=== PATIENT | female | born 1980 | race Caucasian/White ===

== ENCOUNTER 2019-04-06 12:38 | Emergency (ER) | payer SELFPAY ==
[~2019-04-06] VITALS: Ht 180.3 cm; Wt 95.3 kg
--- NOTE | 2019-04-06 13:22 | ED EENT ---
History of Present Illness General Chief Complaint: Ear Problems Stated Complaint: HEADACHE;TROUBLE HEARING Nursing Triage Note: patient reji she has been experiencing left ear pain and left sided neck pain x 1 year that has become progressively worse. Source: patient Exam Limitations: no limitations History of Present Illness Date Seen by Provider: Apr 06, 2019 Time Seen by Provider: 13:06 Initial Comments The patient presents to ER by private conveyance with chief complaint of having some pressure and pain in the left side around her ear as well as decreased hearing on the left side. She does have allergies since she moved down here from [place]. She's not using any antiallergy medicines Flonase etc. She also is having a complaint of some acid reflux has been worse for the past year. She's tried Pepcid, Zantac Tums and other medicines with no relief. She has not seen her primary care doctor for this. Allergies and Home Medications Patient Home Medication List Home Medication List Reviewed: Yes Review of Systems Review of Systems Constitutional: No chills, No diaphoresis Eyes: Denies Blindness, Denies Blurred Vision Ears: Denies Dizziness; Pain; Denies Tinnitus, Denies Bloody Discharge, Denies Clear Discharge, Denies Purulent Discharge Nose: denies clots; congestion Mouth: denies clots, denies loose teeth Throat: denies pain, denies swelling Respiratory: No cough, No dyspnea on exertion Gastrointestinal: see HPI Past Qioxbtg-Eynqzb-Qparlo Hx Patient Social History Alcohol Use: Denies Use Recreational Drug Use: No Smoking Status: Never a Smoker Recent Foreign Travel: No Contact w/Someone Who Travel: No Recent Infectious Disease Expo: No Recent Hopitalizations: No Past Medical History Surgeries: Yes Tubal Ligation Respiratory: No Cardiac: No Neurological: No Genitourinary: No Gastrointestinal: No Musculoskeletal: No Endocrine: No HEENT: No Cancer: No Psychosocial: No Blood Disorders: No Physical Exam Vital Signs Vital Signs - First Documented 04/06/19 13:10 Temp 98.8 Pulse 65 Resp 14 B/P (MAP) 135/91 (106) Pulse Ox 98 O2 Delivery Room Air Height, Weight, BMI Height: 5'11.00" Weight: 210lbs. oz. 95.866185ob; BMI Method:Stated General Appearance: WD/WN, no apparent distress Eyes: bilateral eye normal inspection, bilateral eye PERRL, bilateral eye EOMI Ears: bilateral ear auricle normal, bilateral ear canal normal, bilateral ear TM dull, bilateral ear other (both TMs retracted with a left TM has white mucoid effusion) Nose: normal inspection; No active bleeding, No discharge Mouth/Throat: normal mouth inspection, pharynx normal Respiratory: no respiratory distress, no accessory muscle use Gastrointestinal: normal bowel sounds, non tender, soft Neurologic/Psychiatric: alert, oriented x 3 Progress/Results/Core Measures Results/Orders Vital Signs/I&O 04/06/19 13:10 Temp 98.8 Pulse 65 Resp 14 B/P (MAP) 135/91 (106) Pulse Ox 98 O2 Delivery Room Air Blood Pressure Mean: 106 Progress Progress Note : Time: 13:18 Progress Note Pantoprazole and Carafate for 2 weeks then follow-up with primary care if unimproved. We'll trial of antihistamine second generation and Flonase for 2 weeks and has not improving provide her with a prescription for prednisone to help with her otitis media effusion left Departure Impression Primary Impression: Chronic otitis media of left ear with effusion Additional Impression: GERD (gastroesophageal reflux disease) Qualified Codes: K21.0 - Gastro-esophageal reflux disease with esophagitis Disposition: HOME, SELF-CARE Condition: Stable Departure-Patient Inst. Decision time for Depature: 13:20 Referrals: NO,LOCAL PHYSICIAN (PCP) Primary Care Physician Patient Instructions: Serous Otitis Media (DC) Add. Discharge Instructions: To treat the allergies that are causing the blockage of your ear and eustachian tube I suggest you start taking an antihistamine such as loratadine or cetirizine daily. You should also flower buncher or picker a bottle of Flonase, Rhinocort or other nasal steroid and use 2 puffs each nostril once or twice a day for the next 2 weeks. If this does not solve your symptoms then add the short course of prednisone 2 tablets twice a day for 5 days. For your acid reflux symptoms try the pantoprazole one capsule daily and Carafate 1 tablet 30 minutes before meals and at bedtime for 2 weeks. If this does not improve your reflux symptoms then you need to follow-up with primary care for further evaluation and management. All discharge instructions reviewed with patient and/or family. Voiced understanding. Scripts Prednisone (Prednisone) 20 Mg Tab 40 MG PO BID for 5 Days, #20 TAB 0 Refills Prov: YAJAIRA BARROSO 04/06/19 Fluticasone Propionate (Flonase Allergy Relief) 9.9 Ml [place].susp 2 SPRAY NS DAILY for 14 Days, #1 EACH 0 Refills 2 SPRAYS PER NOSTRIL DAILY X 2 DAYS THEN 1 SPRAY DAILY Prov: YAJAIRA BARROSO 04/06/19 Pantoprazole Sodium (Pantoprazole Sodium) 40 Mg Tablet.dr 40 MG PO DAILY for 14 Days, #14 TAB 0 Refills Prov: YAJAIRA BARROSO 04/06/19 Sucralfate (Carafate) 1 Gm Tablet 1 GM PO QIDACHS for 14 Days, #56 TAB 0 Refills Prov: YAJAIRA BARROSO 04/06/19 YAJAIRA BARROSO Apr 06, 2019 13:22
[2019-04-06] MEDS ORDERED: FLUT9.9S NS (13:25)
[2019-04-06] MEDS ORDERED: PRD20T PO (13:25)
[2019-04-06] MEDS ORDERED: PANT40TA3 PO (13:25)
[2019-04-06] MEDS ORDERED: SUCR1TAB36 PO (13:25)
[2019-04-06 13:36] VITALS: BP 135/91
== END 2019-04-06 13:36 | disposition home or self-care (01) ==
LOC: ER 12:39
DX: H65.492 Other chronic nonsuppurative otitis media, left ear (principal); K21.9 Gastro-esophageal reflux disease without esophagitis; Z98.51 Tubal ligation status
CPT/HCPCS: 99282

== ENCOUNTER 2019-04-19 10:24 | Emergency (ER) | payer BC, OTHER ==
[~2019-04-19] VITALS: Ht 180 cm; Wt 95.0 kg
[~2019-04-19 10:24] MED LIST: FLUT9.9S NS; PANT40TA3 PO; PRD20T PO; SUCR1TAB36 PO
[2019-04-19] MEDS ORDERED: ONDANSETRON 4 MG (ZOFRAN) ORAL DISSOLVE TAB PO ONE (11:30)
[2019-04-19 11:32] LABS: BILIRUBIN,URINE NEGATIVE (NEGATIVE); CLARITY,URINE CLEAR; COLOR,URINE YELLOW; GLUCOSE, URINE (UA) NEGATIVE (NEGATIVE); KETONES,URINE NEGATIVE (NEGATIVE); LEUKOCYTE ESTERASE ,URINE NEGATIVE (NEGATIVE); NITRITE,URINE NEGATIVE (NEGATIVE); PH,URINE 5 (5-9); PROTEIN,URINE NEGATIVE (NEGATIVE); UROBILINOGEN,URINE NORMAL (NORMAL)
--- NOTE | 2019-04-19 11:40 | ED Abdominal Pain ---
General Chief Complaint: Abdominal/GI Problems Stated Complaint: NAUSEA Nursing Triage Note: Pt to triage with C/O nausea/vomiting/diarrhea x 2 wks. Pt got Dx with sinus infection 04/06/19 and states it's the same symptoms and aren't any better. Pt reports fever/chills x 5 days. Sepsis Screen: No Definite Risk Source of Information: Patient Exam Limitations: No Limitations History of Present Illness Date Seen by Provider: Apr 19, 2019 Time Seen by Provider: 11:20 Initial Comments Patient comes in with chief complaint of nausea. Reports history of sinusitis, for which she sought treatment here in the ER for and was told to take mvuo-nnl-wudczut allergy relief. Patient returns today for states continuing of symptoms and now reports nausea. Patient denies diarrhea, loss of appetite, fever, and chills. Patient denies dysuria. Timing/Duration: 1 Week Severity/Quality: Mild Location: Generalized Abdomen Radiation: No Radiation Activities at Onset: None Modifying Factors: Improves With Antacids Associated Symptoms: No Diaphoresis, No Fever/Chills, No Fatigue; Heartburn, Nausea/Vomiting; No Syncope, No Weakness Allergies and Home Medications Allergies Coded Allergies: No Known Drug Allergies (Unverified , 04/19/19) Home Medications Fluticasone Propionate 9.9 Ml [place].susp, 2 SPRAY NS DAILY 2 SPRAYS PER NOSTRIL DAILY X 2 DAYS THEN 1 SPRAY DAILY Prescribed by: YAJAIRA BARROSO on 04/06/19 1325 Ondansetron 8 Mg Tab.rapdis, 8 MG PO Q6H Prescribed by: ANSON GALLARDO on 04/19/19 1145 Pantoprazole Sodium 40 Mg Tablet.dr, 40 MG PO DAILY Prescribed by: YAJAIRA BARROSO on 04/06/19 1325 Prednisone 20 Mg Tab, 40 MG PO BID Prescribed by: YAJAIRA BARROSO on 04/06/19 1325 Sucralfate 1 Gm Tablet, 1 GM PO QIDACHS Prescribed by: YAJAIRA BARROSO on 04/06/19 1325 Patient Home Medication List Home Medication List Reviewed: Yes Review of Systems Review of Systems Constitutional: no symptoms reported EENTM: No Symptoms Reported Respiratory: No Symptoms Reported Cardiovascular: No Symptoms Reported Gastrointestinal: Nausea Genitourinary: No Symptoms Reported Musculoskeletal: no symptoms reported Skin: no symptoms reported Psychiatric/Neurological: No Symptoms Reported Endocrine: No Symptoms Reported Hematologic/Lymphatic: No Symptoms Reported Past Rxdkyyv-Ccdxdu-Tvqbua Hx Patient Social History Alcohol Use: Denies Use Recreational Drug Use: No Smoking Status: Current Everyday Smoker Type Used: Cigarettes 2nd Hand Smoke Exposure: Yes Recent Foreign Travel: No Contact w/Someone Who Travel: No Recent Infectious Disease Expo: No Recent Hopitalizations: No Physical Abuse: No Sexual Abuse: No Mistreated: No Fear: No Past Medical History Surgeries: Yes Tubal Ligation Respiratory: No Cardiac: No Neurological: No Genitourinary: No Gastrointestinal: No Musculoskeletal: No Endocrine: No HEENT: No Cancer: No Psychosocial: No Integumentary: No Blood Disorders: No Physical Exam Vital Signs Vital Signs - First Documented 04/19/19 11:06 Temp 36.6 Pulse 65 Resp 17 B/P (MAP) 120/69 (86) Pulse Ox 98 O2 Delivery Room Air Capillary Refill : Less Than 3 Seconds Height/Weight/BMI Height: 5'11.00" Weight: 210lbs. oz. 95.049845ot; 29.00 BMI Method:Stated General Appearance: no apparent distress HEENT: PERRL/EOMI, normal ENT inspection, TMs normal; No TM abnormal (R), No TM abnormal (L) Neck: non-tender, full range of motion Respiratory: no respiratory distress, no accessory muscle use Cardiovascular: no JVD Gastrointestinal: normal bowel sounds, non tender, soft Extremities: normal range of motion, non-tender Neurologic/Psychiatric: alert, normal mood/affect, oriented x 3 Skin: normal color, warm/dry Progress/Results/Core Measures Results/Orders Lab Results Laboratory Tests Test 04/19/19 11:28 Range/Units Urine Color YELLOW Urine Clarity CLEAR Urine pH 5 5-9 Urine Specific [place] 1.025 H 1.016-1.022 Urine Protein NEGATIVE NEGATIVE Urine Glucose (UA) NEGATIVE NEGATIVE Urine Ketones NEGATIVE NEGATIVE Urine Nitrite NEGATIVE NEGATIVE Urine Bilirubin NEGATIVE NEGATIVE Urine Urobilinogen NORMAL NORMAL MG/DL Urine Leukocyte Esterase NEGATIVE NEGATIVE Urine RBC (Auto) 2+ H NEGATIVE Urine RBC NONE /HPF Urine WBC NONE /HPF Urine Squamous Epithelial Cells 5-10 /HPF Urine Crystals NONE /LPF Urine Bacteria FEW H /HPF Urine Casts NONE /LPF Urine Mucus SMALL H /LPF Urine Culture Indicated NO My Orders Orders - ANSON GALLARDO APRN Ua Culture If Indicated (04/19/19 11:21) Urine Bedside (04/19/19 11:21) Ondansetron Oral Dissolve Tab (Zofran (04/19/19 11:30) Medications Given in ED Current Medications Medications Dose Ordered Sig/Angel Route Start Time Stop Time Status Last Admin Dose Admin Ondansetron HCl 8 mg ONCE ONCE PO 04/19/19 11:30 04/19/19 11:31 DC 04/19/19 11:36 8 MG Vital Signs/I&O 04/19/19 04/19/19 11:06 12:25 Temp 36.6 36.6 Pulse 65 65 Resp 17 17 B/P (MAP) 120/69 (86) 120/69 (86) Pulse Ox 98 98 O2 Delivery Room Air Blood Pressure Mean: 86 Departure Impression Primary Impression: Nausea alone Disposition: 01 HOME, SELF-CARE Condition: Stable Departure-Patient Inst. Decision time for Depature: 11:42 Referrals: NO,LOCAL PHYSICIAN (PCP) Primary Care Physician Patient Instructions: No Instuctions Given Scripts Ondansetron (Ondansetron Odt) 8 Mg Tab.rapdis 8 MG PO Q6H for Nausea for 7 Days, #28 TAB Prov: ANSON GALLARDO APRN 04/19/19 Work/School Note: Work Release Form Date Seen in the Emergency Department: Apr 19, 2019 Return to Work: Apr 20, 2019 ASNON GALLARDO APRN Apr 19, 2019 11:40
[2019-04-19] MEDS ORDERED: ONDA8TAB13 PO (11:45)
[2019-04-19 12:07] LABS: BACTERIA,URINE FEW /HPF
[2019-04-19 12:25] VITALS: BP 120/69
== END 2019-04-19 12:25 | disposition home or self-care (01) ==
LOC: EDUNIT# 10:24 → ER 10:25
DX: R11.0 Nausea (principal); F17.210 Nicotine dependence, cigarettes, uncomplicated; Z98.51 Tubal ligation status
CPT/HCPCS: 81000; 84703; 99283

== ENCOUNTER 2019-07-11 16:05 | Emergency (ER) | payer MEDICAID, OTHER ==
[~2019-07-11] VITALS: Ht 180 cm; Wt 103.0 kg
[~2019-07-11 16:05] MED LIST changes: +ONDA8TAB13 PO
[2019-07-11] MEDS ORDERED: AMOX500C2 PO (16:31)
--- NOTE | 2019-07-11 16:31 | ED EENT ---
History of Present Illness General Chief Complaint: Dental Problems/Pain Stated Complaint: TOOTH PAIN Nursing Triage Note: PATIENT HERE FOR DENTAL PAIN. SHE STATES THAT SHE HAS 3-4 TEETH THAT ARE CAUSING PAIN IN VARIOUS PLACES IN HER MOUTH. SHE STATES SHE HAS TRIED VARIOUS REMEDIES AT HOME INCLUDING TYLENOL, ASA AND VANILLA EXTRACT WITH NO SIGNIFICANT IMPROVEMENT. SHE DID USE SOME OF HER HUSBANDS OLD ANTIBIOTICS BUT RAN OUT. Source: patient Exam Limitations: no limitations History of Present Illness Date Seen by Provider: Jul 11, 2019 Time Seen by Provider: 16:27 Initial Comments Right upper to ER with bilateral lower posterior tooth pain and upper molar on the right side pain for a few days, establishing care with a dentist. Timing/Duration: gradual Severity: moderate Location: dental Prearrival Treatment: over the counter meds Associated Symptoms: denies symptoms Allergies and Home Medications Allergies Coded Allergies: No Known Drug Allergies (Unverified , 04/19/19) Home Medications Fluticasone Propionate 9.9 Ml [place].susp, 2 SPRAY NS DAILY 2 SPRAYS PER NOSTRIL DAILY X 2 DAYS THEN 1 SPRAY DAILY Prescribed by: YAJAIRA BARROSO on 04/06/19 1325 Ondansetron 8 Mg Tab.rapdis, 8 MG PO Q6H Prescribed by: ANSON GALLARDO on 04/19/19 1145 Pantoprazole Sodium 40 Mg Tablet.dr, 40 MG PO DAILY Prescribed by: YAJAIRA BARROSO on 04/06/19 1325 Prednisone 20 Mg Tab, 40 MG PO BID Prescribed by: YAJAIRA BARROSO on 04/06/19 1325 Sucralfate 1 Gm Tablet, 1 GM PO QIDACHS Prescribed by: YAJAIRA BARROSO on 04/06/19 1325 Patient Home Medication List Home Medication List Reviewed: Yes Review of Systems Review of Systems Constitutional: see HPI Eyes: No Symptoms Reported Ears: No Symptoms Reported Nose: no symptoms reported Mouth: see HPI, pain Throat: no symptoms reported Respiratory: no symptoms reported Cardiovascular: no symptoms reported Musculoskeletal: no symptoms reported Skin: no symptoms reported Neurological: No Symptoms Reported Hematologic/Lymphatic: No Symptoms Reported Immunological/Allergic: no symptoms reported Past Hqkkfzm-Tftqla-Tecyoi Hx Patient Social History Alcohol Use: Occasionally Uses Recreational Drug Use: No Smoking Status: Current Everyday Smoker Type Used: Cigarettes 2nd Hand Smoke Exposure: Yes Recent Foreign Travel: No Contact w/Someone Who Travel: No Recent Infectious Disease Expo: No Recent Hopitalizations: No Past Medical History Surgeries: Yes Tubal Ligation Respiratory: No Cardiac: No Neurological: No Genitourinary: No Gastrointestinal: No Musculoskeletal: No Endocrine: No HEENT: No Cancer: No Psychosocial: No Integumentary: No Blood Disorders: No Physical Exam Vital Signs Vital Signs - First Documented 07/11/19 16:15 Temp 36.7 Pulse 80 Resp 20 B/P (MAP) 148/77 (100) Pulse Ox 98 Height, Weight, BMI Height: 5'11.00" Weight: 210lbs. oz. 95.350461mr; 31.00 BMI Method:Stated General Appearance: WD/WN, no apparent distress Eyes: bilateral eye normal inspection, bilateral eye PERRL, bilateral eye EOMI Ears: bilateral ear auricle normal, bilateral ear canal normal, bilateral ear TM normal Mouth/Throat: pharynx normal, dental tenderness; No mandibular swelling, No maxillary swelling; other (dental caries) Neck: non-tender, full range of motion Respiratory: no respiratory distress, no accessory muscle use Gastrointestinal: normal bowel sounds, non tender Neurologic/Psychiatric: alert, normal mood/affect, oriented x 3 Skin: normal color, warm/dry Progress/Results/Core Measures Results/Orders Vital Signs/I&O 07/11/19 16:15 Temp 36.7 Pulse 80 Resp 20 B/P (MAP) 148/77 (100) Pulse Ox 98 Blood Pressure Mean: 100 POS Departure Impression Primary Impression: Dental caries Disposition: 01 HOME, SELF-CARE Condition: Stable Departure-Patient Inst. Decision time for Depature: 16:30 Referrals: NO,LOCAL PHYSICIAN (PCP/Family) Primary Care Physician Patient Instructions: Dental Pain (DC) Add. Discharge Instructions: 1. Follow up with your dentist JALEEL 2. Antibiotics as directed All discharge instructions reviewed with patient and/or family. Voiced unders tanding. Scripts Amoxicillin (Amoxicillin) 500 Mg Capsule 500 MG PO TID, #21 CAP 0 Refills Prov: ANSON GALLARDO BIODIESEL OPERATIONS MANAGER 07/11/19 ANSON GALLARDO BIODIESEL OPERATIONS MANAGER Jul 11, 2019 16:31 POS
[2019-07-11 16:35] VITALS: BP 148/77
--- OUTSIDE RECORDS SUMMARY | 2019-08-06 14:57 | XMS REPORT | Continuity of Care Document ---
Author Organization Unknown Address Unknown Phone Unavailable Allergies Active Description Code Type Severity Reaction Onset Reported/Identified Relationship to Patient Clinical Status Yes No Known Drug Allergies [id number] Drug Allergy Unknown N/A 04/19/2019 Medications There is no data. Problems Date Dx Coded Attending Type Code Diagnosis Diagnosed By 04/06/2019 YAJAIRA BARROSO MD Ot H65.492 OTHER CHRONIC NONSUPPURATIVE OTITIS MEDI 04/06/2019 YAJAIRA BARROSO MD Ot H92. 02 OTALGIA, LEFT EAR 04/06/2019 YAJAIRA BARROSO MD J Ot K21. 9 GASTRO-ESOPHAGEAL REFLUX DISEASE WITHOUT 04/06/2019 YAJAIRA BARROSO MD Ot Z98. 51 TUBAL LIGATION STATUS 04/10/2019 YAJAIRA BARROSO MD Ot H65.492 OTHER CHRONIC NONSUPPURATIVE OTITIS MEDI 04/10/2019 YAJAIRA BARROSO MD Ot H92. 02 OTALGIA, LEFT EAR 04/10/2019 YAJAIRA BARROSO MD Ot K21. 9 GASTRO-ESOPHAGEAL REFLUX DISEASE WITHOUT 04/10/2019 YAJAIRA BARROSO MD Ot Z98. 51 TUBAL LIGATION STATUS 04/19/2019 ANSON GALLARDO APRN Ot F17.210 NICOTINE DEPENDENCE, CIGARETTES, UNCOMPL 04/19/2019 ANSON GALLARDO APRN Ot R11 .0 NAUSEA 04/19/2019 ANSON GALLARDO APRN Ot R11 .2 NAUSEA WITH VOMITING, UNSPECIFIED 04/19/2019 ANSON GALLARDO APRN Ot Z98.51 TUBAL LIGATION STATUS 04/23/2019 ANSON GALLARDO APRN Ot F17.210 NICOTINE DEPENDENCE, CIGARETTES, UNCOMPL 04/23/2019 ANSON GALLARDO APRN Ot R11 .0 NAUSEA 04/23/2019 ANSON GALLARDO APRN Ot R11 .2 NAUSEA WITH VOMITING, UNSPECIFIED 04/23/2019 ANSON GALLARDO APRN Ot Z98.51 TUBAL LIGATION STATUS 04/25/2019 ANSON GALLARDO APRN Ot F17.210 NICOTINE DEPENDENCE, CIGARETTES, UNCOMPL 04/25/2019 ANSON GALLARDO APRN Ot R11 .0 NAUSEA 04/25/2019 ANSON GALLARDO APRN Ot R11 .2 NAUSEA WITH VOMITING, UNSPECIFIED 04/25/2019 ANSON GALLARDO APRN Ot Z98.51 TUBAL LIGATION STATUS 07/11/2019 ANSON GALLARDO APRN Ot F17.210 NICOTINE DEPENDENCE, CIGARETTES, UNCOMPL 07/11/2019 ANSON GALLARDO APRN Ot K02 .9 DENTAL CARIES, UNSPECIFIED 07/11/2019 ANSON GALLARDO APRN Ot K08.89 OTHER SPECIFIED DISORDERS OF TEETH AND S 07/11/2019 ANSON GALLARDO APRN Ot 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 07/11/2019 ANSON GALLARDO APRN Ot 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 Results Test Result Range Complete urinalysis with reflex to cultu re - 04/19/19 11:28 Urine color determination YELLOW NRG Urine clarity determination CLEAR NR G Urine pH measurement by test strip 5 5-9 Specific gravity of urine by test strip 1.025 1.016-1.022 Urine protein assay by test strip, semi-quantitative NEGATIVE NEGATIVE Urine glucose detection by automated test strip NE GATIVE NEGATIVE Erythrocytes detection in urine sediment by light micr oscopy 2+ NEGATIVE Urine ketones detection by automated test strip NE GATIVE NEGATIVE Urine nitrite detection by test strip NEGATIVE NEGATIVE Urine total bilirubin detection by test strip NEGA TIVE NEGATIVE Urine urobilinogen measurement by automated test strip (mass/volume) NORMAL NORMAL Urine leukocyte esterase detection by dipstick NEG ATIVE NEGATIVE Automated urine sediment erythrocyte cou nt by microscopy (number/high power field) NONE NRG Automated urine sediment leukocyte count by microscopy (number/high power field) NONE NRG Bacteria detection in urine sediment by light microsco py FEW NRG Squamous epithelial cells detection in u rine sediment by light microscopy 5-10 NRG Crystals detection in urine sediment by light microsco py NONE NRG Casts detection in urine sediment by light microscopy NONE NRG Mucus detection in urine sediment by light microscopy SMALL NRG Complete urinalysis with reflex to culture NO NRG Encounters ACCT No. Visit Date/Time Discharge Status Pt. Type Provider Facility Loc./Unit Complaint [id number] 07/11/2019 16:06:00 16:40:00 DIS Emergency ANSON GALLARDO APRN [facility] ER TOOTH PAIN [id number] 04/19/2019 10:25:00 12:25:00 DIS Emergency ANSON GALLARDO APRN [facility] ER NAUSEA [id number] 04/06/2019 12:39:00 13:36:00 DIS Emergency YAJAIRA BARROSO MD [facility] ER HEADACHE;TROUBLE HEARBAR G
== END 2019-07-11 16:40 | disposition home or self-care (01) ==
LOC: EDUNIT# 16:05 → ER 16:06
DX: K02.9 Dental caries, unspecified (principal); F17.210 Nicotine dependence, cigarettes, uncomplicated; Z98.51 Tubal ligation status; Z79.51 Long term (current) use of inhaled steroids; Z79.52 Long term (current) use of systemic steroids
CPT/HCPCS: 99282

== ENCOUNTER 2020-02-05 14:30 | Emergency (ER) | payer MEDICAID ==
[~2020-02-05] VITALS: Ht 180 cm; Wt 92.5 kg
[~2020-02-05 14:30] MED LIST changes: +AMOX500C2 PO
[2020-02-05 14:45] VITALS: BP 150/124
[2020-02-05] MEDS ORDERED: PENI500T PO (14:55)
[2020-02-05] MEDS ORDERED: ACET-1672 PO (14:55)
--- NOTE | 2020-02-05 14:55 | ED EENT ---
History of Present Illness General Chief Complaint: Dental Problems/Pain Stated Complaint: DENTAL PAIN Source: patient Exam Limitations: no limitations History of Present Illness Date Seen by Provider: Feb 05, 2020 Time Seen by Provider: 14:49 Initial Comments To ER with left upper dental pain since yesterday. States that she has been unable to sleep because of the pain Timing/Duration: abrupt Severity: moderate Location: dental Associated Symptoms: denies symptoms Allergies and Home Medications Allergies Coded Allergies: No Known Drug Allergies (Unverified , 04/19/19) Home Medications Amoxicillin 500 Mg Capsule, 500 MG PO TID Prescribed by: ANSON GALLARDO on 07/11/19 1631 Fluticasone Propionate 9.9 Ml [place].susp, 2 SPRAY NS DAILY 2 SPRAYS PER NOSTRIL DAILY X 2 DAYS THEN 1 SPRAY DAILY Prescribed by: YAJAIRA BARROSO on 04/06/19 1325 Ondansetron 8 Mg Tab.rapdis, 8 MG PO Q6H Prescribed by: ANSON GALLARDO on 04/19/19 1145 Pantoprazole Sodium 40 Mg Tablet.dr, 40 MG PO DAILY Prescribed by: YAJAIRA BARROSO on 04/06/19 1325 Prednisone 20 Mg Tab, 40 MG PO BID Prescribed by: YAJAIRA BARROSO on 04/06/19 1325 Sucralfate 1 Gm Tablet, 1 GM PO QIDACHS Prescribed by: YAJAIRA BARROSO on 04/06/19 1325 Patient Home Medication List Home Medication List Reviewed: Yes Review of Systems Review of Systems Constitutional: see HPI Eyes: No Symptoms Reported Ears: No Symptoms Reported Nose: no symptoms reported Mouth: see HPI Respiratory: no symptoms reported Cardiovascular: no symptoms reported Musculoskeletal: no symptoms reported Past Qozezvp-Kpkjmd-Xixqsp Hx Patient Social History Type Used: Cigarettes 2nd Hand Smoke Exposure: Yes Recent Foreign Travel: No Contact w/Someone Who Travel: No Recent Hopitalizations: No Past Medical History Surgeries: Yes Tubal Ligation Respiratory: No Cardiac: No Neurological: No Genitourinary: No Gastrointestinal: No Musculoskeletal: No Endocrine: No HEENT: No Cancer: No Psychosocial: No Integumentary: No Blood Disorders: No Physical Exam Height, Weight, BMI Height: 5'11.00" Weight: 210lbs. oz. 95.282860gz; 31.00 BMI Method:Stated General Appearance: WD/WN, no apparent distress Eyes: bilateral eye normal inspection, bilateral eye PERRL, bilateral eye EOMI Ears: bilateral ear auricle normal, bilateral ear canal normal, bilateral ear TM normal Neck: non-tender, full range of motion; No lymphadenopathy (R), No lymphadenopathy (L) Respiratory: no respiratory distress, no accessory muscle use Neurologic/Psychiatric: alert, normal mood/affect, oriented x 3 Skin: normal color, warm/dry Progress/Results/Core Measures Results/Orders My Orders Orders - ANSON GALLARDO APRN Ketorolac Injection (Toradol Injection) (02/05/20 15:00) Departure Impression Primary Impression: Dental caries Disposition: HOME, SELF-CARE Condition: Stable Departure-Patient Inst. Decision time for Depature: 14:53 Referrals: NO,LOCAL PHYSICIAN (PCP/Family) Primary Care Physician Patient Instructions: Dental Pain (DC), Fractured Tooth (DC), Impacted Tooth (DC), Tooth Abscess (DC) Add. Discharge Instructions: 1. Go to [facility] on [address] to make an appointment to be seen. Antibiotics as directed. All discharge instructions reviewed with patient and/or family. Voiced understa nding. Scripts Acetaminophen/Diphenhydramine (Percogesic 325-12.5 mg Tablet) 1 Each Tablet 2 EACH PO Q6H PRN for PAIN-MODERATE (5-7), #14 TAB Prov: ANSON GALLARDO APRN 02/05/20 Penicillin V Potassium (Penicillin V Potassium) 500 Mg Tablet 500 MG PO Q6H, #28 TAB Prov: ANSON GALLARDO APRN 02/05/20 Images Mouth/Nose 1 - Caries, Fracture Tooth, Tenderness ANSON GALLARDO APRN Feb 05, 2020 14:55
[2020-02-05] MEDS ORDERED: KETOROLAC 60 MG/2 ML VIAL IM ONE (15:00)
--- OUTSIDE RECORDS SUMMARY | 2020-02-05 16:10 | XMS REPORT | Continuity of Care Document ---
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 07/11/2019 ANSON GALLARDO APRN Ot Z79.52 POWER PRESS TENDER (CURRENT) USE OF SYSTEMIC STER 07/11/2019 ANSON GALLARDO APRN Ot Z98.51 TUBAL LIGATION STATUS 07/18/2019 ANSON GALLARDO APRN Ot F17.210 NICOTINE DEPENDENCE, CIGARETTES, UNCOMPL 07/18/2019 ANSON GALLARDO APRN Ot K02 .9 DENTAL CARIES, UNSPECIFIED 07/18/2019 ANSON GALLARDO APRN Ot K08.89 OTHER SPECIFIED DISORDERS OF TEETH AND S 07/18/2019 ANSON GALLARDO APRN Ot Z79.51 POWER PRESS TENDER (CURRENT) USE OF INHALED STERO 07/18/2019 ANSON GALLARDO APRN Ot Z79.52 POWER PRESS TENDER (CURRENT) USE OF SYSTEMIC STER 07/18/2019 ANSON [...] Status Pt. Type Provider Facility Loc./Unit Complaint [id number] 07/11/2019 16:06:00 16:40:00 DIS Emergency ANSON GALLARDO APRN [facility] ER TOOTH PAIN [id number] 04/19/2019 10:25:00 12:25:00 DIS Emergency ANSON GALLARDO APRN [facility] ER NAUSEA [id number] 04/06/2019 12:39:00 13:36:00 DIS Emergency YAJAIRA BARROSO MD [facility] ER HEADACHE;TROUBLE HEARBAR G
== END 2020-02-05 15:08 | disposition home or self-care (01) ==
LOC: EDUNIT# 14:30 → ER 14:31
DX: K02.9 Dental caries, unspecified (principal)
CPT/HCPCS: 96372; 99284

== ENCOUNTER 2020-05-17 12:33 | Emergency (ER) | payer MEDICAID ==
[~2020-05-17] VITALS: Ht 180.3 cm; Wt 92.9 kg
[~2020-05-17 12:33] MED LIST changes: +ACET-1672 PO; -PANT40TA3 PO; +PANT40TA52 PO; +PENI500T PO
[2020-05-17 12:37] VITALS: BP 134/78
--- NOTE | 2020-05-17 12:53 | ED Upper Extremity ---
General Chief Complaint: Upper Extremity Stated Complaint: R HAND 4TH FINGER INFECTION/HEAD PRESSURE Nursing Triage Note: PT AMBULATE TO ROOM 07 WITH C/O RIGHT FINGER PAIN. PT STATES THAT FINGER HAS BEEN PAINFUL AND SWOLLEN X5 DAYS. PT STATES SHE HAS BEEN SOAKING AND PUNCTURING FINGER TRYING TO MAKE IT BETTER WITHOUT SUCCESS. Nursing Sepsis Screen: No Definite Risk History of Present Illness Date Seen by Provider: May 17, 2020 Time Seen by Provider: 12:49 Initial Comments This is a healthy appearing 39 yo female who presented to ED for infection of her right 4th finger that started 5 days ago after she picked a hangnail. States she attempted to drain the site last night with a needle, but was unsuccessful. Rates pain 8/10 at this time, has not taken anything prior to arrival. Denies fevers, chills, nausea, vomiting. No reported history of MRSA. No other complaints reported. Severity: moderate Allergies and Home Medications Allergies Coded Allergies: No Known Drug Allergies (Unverified , 04/19/19) Home Medications Acetaminophen/Diphenhydramine 1 Each Tablet, 2 EACH PO Q6H PRN for PAIN-MODERATE (5-7) Prescribed by: ANSON GALLARDO on 02/05/20 1455 Amoxicillin 500 Mg Capsule, 500 MG PO TID Prescribed by: ANSON GALLARDO on 07/11/19 1631 Fluticasone Propionate 9.9 Ml [place].susp, 2 SPRAY NS DAILY 2 SPRAYS PER NOSTRIL DAILY X 2 DAYS THEN 1 SPRAY DAILY Prescribed by: YAJAIRA BARROSO on 04/06/19 1325 Ondansetron 8 Mg Tab.rapdis, 8 MG PO Q6H Prescribed by: ANSON GALLARDO on 04/19/19 1145 Pantoprazole Sodium 40 Mg Tablet.dr, 40 MG PO DAILY Prescribed by: YAJAIRA BARROSO on 04/06/19 1325 Penicillin V Potassium 500 Mg Tablet, 500 MG PO Q6H Prescribed by: ANSON GALLARDO on 02/05/20 1455 Prednisone 20 Mg Tab, 40 MG PO BID Prescribed by: YAJAIRA BARROSO on 04/06/19 1325 Sucralfate 1 Gm Tablet, 1 GM PO QIDACHS Prescribed by: YAJAIRA BARROSO on 04/06/19 1325 Sulfamethoxazole/Trimethoprim 1 Each Tablet, 1 EACH PO BID Prescribed by: JEREMY PIEDRA on 05/17/20 1321 Patient Home Medication List Home Medication List Reviewed: Yes Review of Systems Constitutional: no symptoms reported EENTM: no symptoms reported Respiratory: no symptoms reported Cardiovascular: no symptoms reported Gastrointestinal: no symptoms reported Genitourinary: no symptoms reported Musculoskeletal: no symptoms reported Skin: see HPI Psychiatric/Neurological: No Symptoms Reported Past Hxbcqmz-Pipjio-Rhfwpf Hx Patient Social History Alcohol Use: Rarely Uses Recreational Drug Use: Yes Drug of Choice: POT Smoking Status: Current Everyday Smoker Type Used: Cigarettes 2nd Hand Smoke Exposure: Yes Recent Foreign Travel: No Contact w/Someone Who Travel: No Recent Infectious Disease Expo: No Recent Hopitalizations: No Physical Abuse: No Sexual Abuse: No Mistreated: No Fear: No Past Medical History Surgeries: Yes Tubal Ligation Respiratory: No Cardiac: No Neurological: No Genitourinary: No Gastrointestinal: No Musculoskeletal: No Endocrine: No HEENT: No Cancer: No Psychosocial: No Integumentary: No Blood Disorders: No Physical Exam Vital Signs Vital Signs - First Documented 05/17/20 12:37 Temp 36.3 Pulse 89 Resp 17 B/P (MAP) 134/78 (96) O2 Delivery Room Air Capillary Refill : Less Than 3 Seconds Height, Weight, BMI Height: 5'11.00" Weight: 210lbs. oz. 95.946109un; 28.00 BMI Method:Stated General Appearance: WD/WN, no apparent distress HEENT: PERRL/EOMI, normal ENT inspection Neck: full range of motion, normal inspection Cardiovascular: normal peripheral pulses, regular rate, rhythm Respiratory: lungs clear, normal breath sounds, no respiratory distress Neurologic/Psychiatric: alert, normal mood/affect, oriented x 3 Skin: normal color, warm/dry, other Erythema and swelling of left 4th cuticle. Procedures/Interventions I&D : Site: Right 4th cuticle Blade Size: 10 I & D Procedure: betadine prep Progress/Results/Core Measures Results/Orders My Orders Orders - JEREMY PIEDRA APRN Wound Culture (05/17/20 13:22) Vital Signs/I&O 05/17/20 12:37 Temp 36.3 Pulse 89 Resp 17 B/P (MAP) 134/78 (96) O2 Delivery Room Air Blood Pressure Mean: 96 Progress Progress Note : Progress Note Performed incision and drainage of paronychia with a 10 blade scalpel. Cleanse area with beta prep prior to procedure. Was able to express a moderate amount purulent drainage. Culture obtained. Reviewed POC, and she is agreeable with p aadm. Covered with Bactrim. Departure Impression Primary Impression: Paronychia of finger of right hand Disposition: HOME, SELF-CARE Condition: Improved Departure-Patient Inst. Decision time for Depature: 13:14 Referrals: NO,LOCAL PHYSICIAN (PCP/Family) Primary Care Physician Patient Instructions: Paronychia (DC) Add. Discharge Instructions: Plan: 1. Discharge home. 2. Do not bite or pick at her fingernails. Avoid chewing or sucking on your fingers. 3. Soak your hand in warm water for 20 minutes at a time 3 times a day. 4. Take antibiotics as directed and complete full course. 5. Establish with a primary care provider of your choice. 6. Return to ER for any new or concerning symptoms. All discharge instructions reviewed with patient and/or family. Voiced understanding. Scripts Sulfamethoxazole/Trimethoprim (Bactrim Ds Tablet) 1 Each Tablet 1 EACH PO BID for 7 Days, #14 TAB 0 Refills Prov: JEREMY PIEDRA [employer] 05/17/20 JEREMY PIEDRA [employer] May 17, 2020 12:53
[2020-05-17] MEDS ORDERED: SULF1TAB35 PO (13:21)
== END 2020-05-17 13:28 | disposition home or self-care (01) ==
LOC: EDUNIT# 12:33 → ER 12:34
DX: L03.011 Cellulitis of right finger (principal); F17.210 Nicotine dependence, cigarettes, uncomplicated; Z79.52 Long term (current) use of systemic steroids
CPT/HCPCS: 87070; 87205; 99282

== ENCOUNTER → 2021-03-05 | Outpatient (CLI) | payer MEDICAID ==
[~2021-03-05] MED LIST changes: +SULF1TAB38 PO
--- NOTE | 2021-03-05 14:14 | Diagnostic Imaging Report ---
Indication: Left breast lump. No prior mammograms are available for comparison. This is a baseline study. 2-D and 3-D bilateral screening mammography was performed with CAD. BB marker is placed at the area of palpable abnormality in the upper and outer left breast. No underlying mass identified. No malignant-appearing microcalcifications are seen. Axillae are unremarkable. IMPRESSION: BI-RADS Category 0 No mammographic features suspicious for malignancy are identified. Even so, directed sonographic interrogation of the area of palpable abnormality upper outer left breast is recommended and will be performed today. ACR BI-RADS Category 0: Incomplete. (Needs additional imaging evaluation). Result letter will be mailed to the patient. Note: At least 10% of breast cancer is not imaged by mammography. Dictated by: Dictated on workstation # [id number]
--- NOTE | 2021-03-05 14:20 | Diagnostic Imaging Report ---
Indication: Palpable lump left breast. Correlation is made with diagnostic mammogram earlier same day. Sonographic interrogation of the upper and outer aspect the left breast at the area palpable abnormality was performed. This corresponds to 2 o'clock location. No sonographic abnormality is identified. No solid or cystic mass is detected. IMPRESSION: BI-RADS Category 1 No sonographic abnormalities detected. Continued close clinical and self breast exams recommended to confirm stability of the area of palpable abnormality. ACR BI-RADS Category 1: Negative. Result letter will be mailed to the patient. Note: At least 10% of breast cancer is not imaged by mammography. Dictated by: Dictated on workstation # [id number]
== END ==
LOC: RAD 13:15
PROVIDERS: ATTEND Pediatrics
DX: N63.20 Unspecified lump in the left breast, unspecified quadrant (principal)
CPT/HCPCS: 76642; 77066; G0279; 77062

== ENCOUNTER → 2021-03-24 | Outpatient (CLI) | payer MEDICAID ==
--- NOTE | 2021-03-24 15:40 | Diagnostic Imaging Report ---
PROCEDURE: MR imaging of the brain without contrast. TECHNIQUE: Multiplanar, multisequence MR imaging of the brain was performed without contrast. INDICATION: Pressure at the back of the head. No prior studies are available for comparison. The ventricles and sulci are within normal limits. The normal expected flow-voids within the carotid siphons are seen. There is no diffusion restriction identified to suggest acute ischemia. No white matter lesions are identified. No acute intra-axial or extra-axial hemorrhage is detected. The corpus callosum is unremarkable. The sella and parasellar structures are unremarkable. IMPRESSION: Unremarkable noncontrast MRI of the brain. Dictated by: Dictated on workstation # [id number]
== END ==
LOC: RAD 14:00
PROVIDERS: ATTEND Pediatrics
DX: G44.52 New daily persistent headache (NDPH) (principal)
CPT/HCPCS: 70551

== ENCOUNTER 2021-09-03 12:00 | Emergency (ER) | payer MEDICAID ==
[~2021-09-03] VITALS: Ht 180.3 cm; Wt 92.0 kg
[2021-09-03] MEDS ORDERED: KETOROLAC 30 MG/ML VIAL IVP ONE (12:30)
[2021-09-03] MEDS ORDERED: LACTATED RINGERS 1,000 ML IV SCH ×2 (12:30→14:15)
[2021-09-03] MEDS ORDERED: ONDANSETRON 4 MG/2 ML (SDV) Z0FRAN IVP ONE (12:30)
--- NOTE | 2021-09-03 12:34 | ED GI ---
General Chief Complaint: Abdominal/GI Problems Stated Complaint: N/V,ABD PAIN Nursing Triage Note: pt reports vomiting while at work last night, nausea and vomiting since and abdominal pain. pt reports she is constipated, last bm was yesterday. Source of Information: Patient Exam Limitations: No Limitations History of Present Illness Date Seen by Provider: Sep 03, 2021 Time Seen by Provider: 12:32 Initial Comments To ER with nausea vomiting since last night. Low at work she had some fruit Jell-O cups at work and started vomiting neuropathy and then began vomiting at about midnight. Today she has vomited about 10 times since then. Describes has a known history of acid reflux. Timing/Duration: 1-2 Days Severity/Quality: Moderate Location: Generalized Abdomen Radiation: No Radiation Activities at Onset: None Associated Symptoms: Nausea/Vomiting Allergies and Home Medications Allergies Coded Allergies: No Known Drug Allergies (Unverified , 04/19/19) Patient Home Medication List Home Medication List Reviewed: Yes Acetaminophen/Diphenhydramine (Percogesic 325-12.5 mg Tablet) 1 Each Tablet, 2 EACH PO Q6H PRN for PAIN-MODERATE (5-7) Prescribed by: ANSON GALLARDO on 02/05/20 1455 Amoxicillin (Amoxicillin) 500 Mg Capsule, 500 MG PO TID Prescribed by: ANSON GALLARDO on 07/11/19 1631 Fluticasone Propionate (Flonase Allergy Relief) 9.9 Ml [place].susp, 2 SPRAY NS DAILY Prescribed by: YAJAIRA BARROSO on 04/06/19 1325 Ondansetron (Ondansetron Odt) 8 Mg Tab.rapdis, 8 MG PO Q6H Prescribed by: ANSON GALLARDO on 04/19/19 1145 Ondansetron (Ondansetron Odt) 8 Mg Tab.rapdis, 8 MG PO Q6H PRN for NAUSEA/VOMI TING Prescribed by: ANSON GALLARDO on 09/03/21 1403 Pantoprazole Sodium (Pantoprazole Sodium) 40 Mg Tablet.dr, 40 MG PO DAILY Prescribed by: YAJAIRA BARROSO on 04/06/19 1325 Penicillin V Potassium (Penicillin V Potassium) 500 Mg Tablet, 500 MG PO Q6H Prescribed by: ANSON GALLARDO on 02/05/20 1455 Prednisone (Prednisone) 20 Mg Tab, 40 MG PO BID Prescribed by: YAJAIRA BARROSO on 04/06/19 1325 Sucralfate (Carafate) 1 Gm Tablet, 1 GM PO QIDACHS Prescribed by: YAJAIRA BARROSO on 04/06/19 1325 Sulfamethoxazole/Trimethoprim (Bactrim Ds Tablet) 1 Each Tablet, 1 EACH PO BID Prescribed by: JEREMY PIEDRA on 05/17/20 1321 Review of Systems Review of Systems Constitutional: see HPI EENTM: No Symptoms Reported Respiratory: No Symptoms Reported Cardiovascular: No Symptoms Reported Gastrointestinal: See HPI, Abdominal Pain, Nausea, Vomiting Genitourinary: No Symptoms Reported Musculoskeletal: no symptoms reported Skin: no symptoms reported Psychiatric/Neurological: No Symptoms Reported Endocrine: No Symptoms Reported Hematologic/Lymphatic: No Symptoms Reported Past Nkuemai-Mtxahr-Jltdgp Hx Patient Social History Tobacco Use?: Yes Tobacco type used: Cigarettes Smoking Status: Current Everyday Smoker Substance use?: No Alcohol Use?: Yes Alcohol Frequency: Once in a while Pt feels they are or have been: No Past Medical History Surgeries: Yes Tubal Ligation Respiratory: No Cardiac: No Neurological: No Genitourinary: No Gastrointestinal: No Musculoskeletal: No Endocrine: No HEENT: No Cancer: No Psychosocial: No Integumentary: No Blood Disorders: No Physical Exam Vital Signs Vital Signs - First Documented 09/03/21 12:23 Temp 36.7 Pulse 58 Resp 16 B/P (MAP) 95/ Pulse Ox 99 O2 Flow Rate 161.00 Capillary Refill : Less Than 3 Seconds Height/Weight/BMI Height: 5'11.00" Weight: 210lbs. oz. 95.779338rs; 28.00 BMI Method:Stated General Appearance: WD/WN, no apparent distress Neck: non-tender, full range of motion Respiratory: no respiratory distress, no accessory muscle use Cardiovascular: regular rate, rhythm, no murmur Gastrointestinal: normal bowel sounds, soft Extremities: normal range of motion, non-tender Neurologic/Psychiatric: alert, normal mood/affect, oriented x 3 Skin: normal color, warm/dry Progress/Results/Core Measures Results/Orders Lab Results Laboratory Tests Test 09/03/21 12:43 09/03/21 12:47 Range/Units White Blood Count 8.2 4.3-11.0 10^3/uL Red Blood Count 4.58 3.80-5.11 10^6/uL Hemoglobin 15.4 11.5-16.0 g/dL Hematocrit 45 35-52 % Mean Corpuscular Volume 97 80-99 fL Mean Corpuscular Hemoglobin 34 25-34 pg Mean Corpuscular Hemoglobin Concent 35 32-36 g/dL Red Cell Distribution Width 12.6 10.0-14.5 % Platelet Count 185 130-400 10^3/uL Mean Platelet Volume 10.7 9.0-12.2 fL Immature Granulocyte % (Auto) 0 % Neutrophils (%) (Auto) 77 H 42-75 % Lymphocytes (%) (Auto) 16 12-44 % Monocytes (%) (Auto) 5 0-12 % Eosinophils (%) (Auto) 1 0-10 % Basophils (%) (Auto) 1 0-10 % Neutrophils # (Auto) 6.3 1.8-7.8 10^3/uL Lymphocytes # (Auto) 1.3 1.0-4.0 10^3/uL Monocytes # (Auto) 0.4 0.0-1.0 10^3/uL Eosinophils # (Auto) 0.1 0.0-0.3 10^3/uL Basophils # (Auto) 0.0 0.0-0.1 10^3/uL Immature Granulocyte # (Auto) 0.0 0.0-0.1 10^3/uL Sodium Level 141 135-145 MMOL/L Potassium Level 3.5 L 3.6-5.0 MMOL/L Chloride Level 105 98-107 MMOL/L Carbon Dioxide Level 22 21-32 MMOL/L Anion Gap 14 5-14 MMOL/L Blood Urea Nitrogen 12 7-18 MG/DL Creatinine 0.83 0.60-1.30 MG/DL Estimat Glomerular Filtration Rate 91 BUN/Creatinine Ratio 14 Glucose Level 125 H 70-105 MG/DL Calcium Level 9.8 8.5-10.1 MG/DL Corrected Calcium 9.4 8.5-10.1 MG/DL Total Bilirubin 0.8 0.1-1.0 MG/DL Aspartate Amino Transf (AST/SGOT) 18 5-34 U/L Alanine Aminotransferase (ALT/SGPT) 13 0-55 U/L Alkaline Phosphatase 58 40-136 U/L Total Protein 7.4 6.4-8.2 GM/DL Albumin 4.5 3.2-4.5 GM/DL Lipase 26 8-78 U/L Serum Test, Qualitative NEGATIVE NEGATIVE Urine Color YELLOW Urine Clarity CLEAR Urine pH 7.5 5-9 Urine Specific [place] 1.010 L 1.016-1.022 Urine Protein NEGATIVE NEGATIVE Urine Glucose (UA) NEGATIVE NEGATIVE Urine Ketones TRACE H NEGATIVE Urine Nitrite NEGATIVE NEGATIVE Urine Bilirubin NEGATIVE NEGATIVE Urine Urobilinogen 0.2 < = 1.0 MG/DL Urine Leukocyte Esterase NEGATIVE NEGATIVE Urine RBC (Auto) TRACE-I H NEGATIVE Urine RBC NONE /HPF Urine WBC NONE /HPF Urine Squamous Epithelial Cells 2-5 /HPF Urine Crystals NONE /LPF Urine Bacteria NEGATIVE /HPF Urine Casts NONE /LPF Urine Mucus NEGATIVE /LPF Urine Culture Indicated NO Urine Opiates Screen NEGATIVE NEGATIVE Urine Oxycodone Screen NEGATIVE NEGATIVE Urine Methadone Screen NEGATIVE NEGATIVE Urine Propoxyphene Screen NEGATIVE NEGATIVE Urine Barbiturates Screen NEGATIVE NEGATIVE Ur Tricyclic Antidepressants Screen NEGATIVE NEGATIVE Urine Phencyclidine Screen NEGATIVE NEGATIVE Urine Amphetamines Screen NEGATIVE NEGATIVE Urine Methamphetamines Screen NEGATIVE NEGATIVE Urine Benzodiazepines Screen NEGATIVE NEGATIVE Urine Cocaine Screen NEGATIVE NEGATIVE Urine Cannabinoids Screen POSITIVE H NEGATIVE My Orders Orders - ANSON GALLARDO APRN Cbc With Automated Diff (09/03/21 12:27) Comprehensive Metabolic Panel (09/03/21 12:27) Ua Culture If Indicated (09/03/21 12:27) Drug Screen Stat (Urine) (09/03/21 12:27) Coronavirus Sars-Cov-2 So 2018 (09/03/21 12:27) Lipase (09/03/21 12:27) Hcg,Qualitative Serum (09/03/21 12:27) Ed Iv/Invasive Line Start (09/03/21 12:27) Lactated Ringers (Lr 1000 Ml Iv Solution (09/03/21 12:30) Ketorolac Injection (Toradol Injection) (09/03/21 12:30) Ondansetron Injection (Zofran Injectio (09/03/21 12:30) Lactated Ringers (Lr 1000 Ml Iv Solution (09/03/21 14:15) Medications Given in ED Current Medications Medications Dose Ordered Sig/Angel Route Start Time Stop Time Status Last Admin Dose Admin Ketorolac Tromethamine 15 mg ONCE ONCE IVP 09/03/21 12:30 09/03/21 12:31 DC 09/03/21 12:42 15 MG Ondansetron HCl 8 mg ONCE ONCE IVP 09/03/21 12:30 09/03/21 12:31 DC 09/03/21 12:42 8 MG Vital Signs/I&O 09/03/21 12:23 Temp 36.7 Pulse 58 Resp 16 B/P (MAP) 95/ Pulse Ox 99 O2 Flow Rate 161.00 Departure Communication (Admissions) 1402-denies any abdominal pain at this time no nausea at this time. Abdomen is flat and soft. She believes she has food poisoning from her Jell-O at work last night. Symptoms have completely resolved. Impression Primary Impression: Vomiting with nausea, not intractable Disposition: HOME, SELF-CARE Condition: Stable Departure-Patient Inst. Decision time for Depature: 14:03 Referrals: NO,LOCAL PHYSICIAN (PCP/Family) Primary Care Physician Patient Instructions: Nausea and Vomiting, Adult ED Add. Discharge Instructions: 1. Return to ER for any concerns 2. Nausea medication as directed. Follow-up with your doctor next week. All discharge instructions reviewed with patient and/or family. Voiced understanding. Scripts Ondansetron (Ondansetron Odt) 8 Mg Tab.rapdis 8 MG PO Q6H PRN for NAUSEA/VOMITING, #10 TAB Prov: ANSON GALLARDO APRN 09/03/21 Work/School Note: Work Release Form Date Seen in the Emergency Department: Sep 03, 2021 Return to Work: Sep 04, 2021 ANSON GALLARDO APRN Sep 03, 2021 12:34
[2021-09-03 13:00] LABS: BASOPHILS % (AUTO) 1 % (0-10); EOSINOPHILS # (AUTO) 0.1 10^3/uL (0.0-0.3); EOSINOPHILS % (AUTO) 1 % (0-10); HEMATOCRIT 45 % (35-52); HEMOGLOBIN 15.4 g/dL (11.5-16.0); LYMPHOCYTES # (AUTO) 1.3 10^3/uL (1.0-4.0); LYMPHOCYTES % (AUTO) 16 % (12-44); MEAN CORPUSCULAR HEMOGLOBIN 34 pg (25-34); MEAN CORPUSCULAR HGB CONC 35 g/dL (32-36); MEAN CORPUSCULAR VOLUME 97 fL (80-99); MEAN PLATELET VOLUME 10.7 fL (9.0-12.2); MONOCYTES # (AUTO) 0.4 10^3/uL (0.0-1.0); MONOCYTES % (AUTO) 5 % (0-12); NEUTROPHILS # (AUTO) 6.3 10^3/uL (1.8-7.8); NEUTROPHILS % (AUTO) 77 % (42-75); PLATELET COUNT 185 10^3/uL (130-400); WHITE BLOOD COUNT 8.2 10^3/uL (4.3-11.0)
[2021-09-03 13:09] LABS: ALBUMIN 4.5 GM/DL (3.2-4.5); POTASSIUM 3.5 MMOL/L (3.6-5.0)
[2021-09-03 13:10] LABS: CALCIUM 9.8 MG/DL (8.5-10.1)
[2021-09-03 13:11] LABS: TOTAL PROTEIN 7.4 GM/DL (6.4-8.2)
[2021-09-03 13:13] LABS: BILIRUBIN,TOTAL 0.8 MG/DL (0.1-1.0)
[2021-09-03 13:15] LABS: CREATININE SERUM 0.83 MG/DL (0.60-1.30)
[2021-09-03] MEDS ORDERED: ONDA8TAB13 PO (14:03)
[2021-09-03 15:18] LABS: BILIRUBIN,URINE NEGATIVE (NEGATIVE); CLARITY,URINE CLEAR; COLOR,URINE YELLOW; GLUCOSE, URINE (UA) NEGATIVE (NEGATIVE); KETONES,URINE TRACE (NEGATIVE); LEUKOCYTE ESTERASE ,URINE NEGATIVE (NEGATIVE); NITRITE,URINE NEGATIVE (NEGATIVE); PH,URINE 7.5 (5-9); PROTEIN,URINE NEGATIVE (NEGATIVE)
[2021-09-03 15:24] LABS: BACTERIA,URINE NEGATIVE /HPF
[2021-09-03 15:34] LABS: AMPHETAMINE SCREEN, URINE NEGATIVE (NEGATIVE); BARBITURATE SCREEN URINE NEGATIVE (NEGATIVE); BENZODIAZEPINES SCREEN URINE NEGATIVE (NEGATIVE); CANNABINOID SCREEN, URINE POSITIVE (NEGATIVE); COCAINE SCREEN URINE NEGATIVE (NEGATIVE); METHADONE STAT NEGATIVE (NEGATIVE); METHAMPHETAMINE SCREEN URINE S NEGATIVE (NEGATIVE); OPIATE SCREEN URINE NEGATIVE (NEGATIVE); OXYCODONE STAT NEGATIVE (NEGATIVE); PROPOXYPHENE STAT NEGATIVE (NEGATIVE); TRICYCLIC ANTIDEPRESSANTS SCRE NEGATIVE (NEGATIVE)
[2021-09-03 15:39] VITALS: BP 130/72
== END 2021-09-03 15:39 | disposition home or self-care (01) ==
LOC: EDUNIT# 12:00 → ER 12:02
DX: R11.2 Nausea with vomiting, unspecified (principal); F17.210 Nicotine dependence, cigarettes, uncomplicated; Z20.822 Contact with and (suspected) exposure to COVID-19
CPT/HCPCS: 36415; 80053; 80306; 81000; 83690; 84703; 85025; 87635; 99283

== ENCOUNTER 2022-08-25 08:08 | Emergency (ER) | payer MEDICAID ==
[~2022-08-25] VITALS: Ht 180.3 cm; Wt 88.4 kg
--- NOTE | 2022-08-25 08:49 | ED Lower Extremity ---
General Chief Complaint: Lower Extremity Stated Complaint: LT LEG PAIN Nursing Triage Note: PT AMB TO RM 8 WITH COMPLAINT OF LEFT HIP/LEG PAIN. STATES STARTED A FEW DAYS AGO. Source: patient Exam Limitations: no limitations History of Present Illness Date Seen by Provider: Aug 25, 2022 Time Seen by Provider: 08:32 Initial Comments Patient is a 41-year-old female who presents to the emergency room with a chief complaint of left hip pain. Patient states it started "a couple of days ago. She states she went walking on a long hike that was 2 miles in [place] 3 or 4 days ago. She states the pain started after that. She denies any falls or direct injuries. She states she is not able to sleep due to the pain. She denies numbness, tingling or weakness. She has never injured her left leg before. No history of blood clot. No rashes reported. No fevers, chills. Movement, walking makes the pain worse. She has not tried any medications for the pain. No creams or gels. She also incidentally complains of a right-sided cervico-occipital headache. She states this has been chronic for 7 to 8 years. She states pressure at the craniocervical junction makes the pain feel a little better. She also complains of necrotic teeth. All other review of systems reviewed and negative except as stated. Onset: other (2-3 days) Pain/Injury Location: left hip Modifying Factors: Worse With Movement Allergies and Home Medications Allergies Coded Allergies: No Known Drug Allergies (Unverified , 04/19/19) Patient Home Medication List Home Medication List Reviewed: Yes Acetaminophen/Diphenhydramine (Percogesic 325-12.5 mg Tablet) 1 Each Tablet, 2 EACH PO Q6H PRN for PAIN-MODERATE (5-7) Prescribed by: ANSON GALLARDO on 02/05/20 1455 Amoxicillin (Amoxicillin) 500 Mg Capsule, 500 MG PO TID Prescribed by: ANSON GALLARDO on 07/11/19 1631 Fluticasone Propionate (Flonase Allergy Relief) 9.9 Ml [place].susp, 2 SPRAY NS DAILY Prescribed by: YAJAIRA BARROSO on 04/06/19 1325 Ondansetron (Ondansetron Odt) 8 Mg Tab.rapdis, 8 MG PO Q6H Prescribed by: ANSON GALLARDO on 04/19/19 1145 Ondansetron (Ondansetron Odt) 8 Mg Tab.rapdis, 8 MG PO Q6H PRN for NAUSEA/VOMITING Prescribed by: ANSON GALLARDO on 09/03/21 1403 Pantoprazole Sodium (Pantoprazole Sodium) 40 Mg Tablet.dr, 40 MG PO DAILY Prescribed by: YAJAIRA BARROSO on 04/06/19 1325 Penicillin V Potassium (Penicillin V Potassium) 500 Mg Tablet, 500 MG PO Q6H Prescribed by: ANSON GALLARDO on 02/05/20 1455 Prednisone (Prednisone) 20 Mg Tab, 40 MG PO BID Prescribed by: YAJAIRA BARROSO on 04/06/19 1325 Sucralfate (Carafate) 1 Gm Tablet, 1 GM PO QIDACHS Prescribed by: YAJAIRA BARROSO on 04/06/19 1325 Sulfamethoxazole/Trimethoprim (Bactrim Ds Tablet) 1 Each Tablet, 1 EACH PO BID Prescribed by: JEREMY PIEDRA on 05/17/20 1321 Review of Systems Constitutional: see HPI EENTM: other (dental decay) Respiratory: no symptoms reported Cardiovascular: no symptoms reported Gastrointestinal: no symptoms reported Musculoskeletal: joint pain (left hip) Skin: no symptoms reported Psychiatric/Neurological: Headache Past Rpmfxrs-Yvnhyp-Uafsex Hx Patient Social History Tobacco Use?: Yes Smoking Status: Heavy Tobacco Smoker Use of E-Cig and/or Vaping dev: No Substance use?: Yes Substance type: Marijuana Alcohol Use?: Yes Alcohol Frequency: Once in a while Pt feels they are or have been: No Past Medical History Surgeries: Yes Tubal Ligation Respiratory: No Cardiac: No Neurological: No Genitourinary: No Gastrointestinal: No Musculoskeletal: No Endocrine: No HEENT: No Cancer: No Psychosocial: No Integumentary: No Blood Disorders: No Physical Exam Vital Signs Vital Signs - First Documented 08/25/22 08:16 Temp 35.8 Pulse 66 Resp 17 B/P (MAP) 136/83 (100) Pulse Ox 98 O2 Delivery Room Air Capillary Refill : Less Than 3 Seconds Height, Weight, BMI Height: 5'11.00" Weight: 210lbs. oz. 95.801754nj; 27.00 BMI Method:Stated General Appearance: WD/WN, no apparent distress HEENT: PERRL/EOMI Neck: full range of motion Cardiovascular: regular rate, rhythm Respiratory: no respiratory distress, no accessory muscle use Gastrointestinal: normal bowel sounds, non tender, soft Back: normal inspection, no vertebral tenderness Hips: right hip non-tender, right hip normal inspection, right hip normal range of motion, right hip no evidence of injury; left hip pain (discomfort with external rotation of hip; tenderness to palpation over the hip joint, anterior and lateral; no sciatic nerve point tenderness; no overlying rashes. normal strength and sensation) Legs: bilateral leg non-tender, bilateral leg normal inspection, bilateral leg normal range of motion, bilateral leg no evidence of injury Knees: bilateral knee non-tender, bilateral knee normal inspection, bilateral knee normal range of motion, bilateral knee no evidence of injury Ankles: bilateral ankle non-tender, bilateral ankle normal inspection, bilateral ankle normal range of motion, bilateral ankle no evidence of injury Feet: bilateral foot non-tender, bilateral foot normal inspection, bilateral foot normal range of motion, bilateral foot no evidence of injury Neurologic/Tendon: normal sensation, normal motor functions, normal tendon functions Neurologic/Psychiatric: no motor/sensory deficits, alert, normal mood/affect, oriented x 3 Skin: normal color, warm/dry Progress/Results/Core Measures Results/Orders Vital Signs/I&O 08/25/22 08:16 Temp 35.8 Pulse 66 Resp 17 B/P (MAP) 136/83 (100) Pulse Ox 98 O2 Delivery Room Air Blood Pressure Mean: 100 Counseling-Symptomatic: 3-10 Minutes Follow-up with PCP to: Discuss Further Options Departure Impression Primary Impression: Bursitis of left hip Qualified Codes: M70.72 - Other bursitis of hip, left hip Disposition: HOME, SELF-CARE Condition: Stable Departure-Patient Inst. Decision time for Depature: 08:51 Referrals: [facility] (PCP/Family) Primary Care Physician Patient Instructions: Bursitis ED Add. Discharge Instructions: You can absolutely use heating pads to the left hip as well as IcyHot, Biofreeze or Voltaren gel to the sore area of your left hip. Take the prednisone in the morning, 50 mg once daily for 5 days. A prescription has been sent to [facility] pharmacy. You should continue to do daily stretches. Please strongly consider quitting smoking to prevent further health problems. Return to the emergency department for any new, concerning or emergent complaints. Please follow-up with routine health maintenance at [facility]. Scripts Prednisone (Prednisone) 50 Mg Tab 50 MG PO DAILY for 5 Days, #5 TAB Prov: CHIDI DELAROSA MD 08/25/22 Copy Copies To 1: FELECIA MONTERO KATHRYN M MD Aug 25, 2022 08:49
[2022-08-25] MEDS ORDERED: PRD50T PO (08:51)
[2022-08-25 09:15] VITALS: BP 150/85
== END 2022-08-25 09:15 | disposition home or self-care (01) ==
LOC: EDUNIT# 08:08 → ER 08:10
DX: M70.72 Other bursitis of hip, left hip (principal); F17.200 Nicotine dependence, unspecified, uncomplicated
CPT/HCPCS: 99281

== ENCOUNTER 2022-11-29 21:05 | Emergency (ER) | payer MEDICAID ==
[~2022-11-29] VITALS: Ht 180.3 cm; Wt 92.9 kg
[~2022-11-29 21:05] MED LIST changes: +PRD50T PO
[2022-11-29] MEDS ORDERED: CLINDAMYCIN 150 MG (CLEOCIN) CAP PO STA (21:38)
[2022-11-29] MEDS ORDERED: HYDROcodone/APAP 5 MG/325 MG (LORTAB) TAB PO ONE (21:45)
--- NOTE | 2022-11-29 21:47 | ED EENT ---
History of Present Illness General Chief Complaint: Dental Problems/Pain Stated Complaint: TOOTH PAIN Nursing Triage Note: PATIENT COMPLAINT OF DENTAL PAIN LEFT SIDE OF MOUTH. STATES GOING ON FOR A WHILE. PATIENT STATES "HOLE" IN HER TOOTH. STATES TAKING ADVIL, TYLENOL, MOUTH WASH WITH HYDROGEN PEROXIDE. STATES PAIN IS NOT ANY BETTER. PATIENT STATES SHE FOUND AN OLD BOTTEL OF ANTIOBITIC AND HAS BEEN TAKING IT FOR THE LAST WEEK. WAS SEEN AT [facility] AND TOLD THEY DO NOT PULL TEETH. Source: patient Exam Limitations: no limitations History of Present Illness Date Seen by Provider: Nov 29, 2022 Time Seen by Provider: 20:32 Initial Comments Here with complaint of left lower jaw pain posterior that is radiating to the upper jaw. Does have a history of poor dentition. Currently is on a prescription for amoxicillin although does not know the dose. She is following with [facility]. She is having a tough time with the pain. She is taking an acetaminophen and 3 ibuprofen and that is not working for the pain. Denies nausea or vomiting. Denies fever or chills. Does not have significant swelling of the face. She is able to swallow without difficulty. Timing/Duration: last week Severity: moderate Location: dental Associated Symptoms: No fever; tooth pain Allergies and Home Medications Allergies Coded Allergies: No Known Drug Allergies (Unverified , 04/19/19) Patient Home Medication List Home Medication List Reviewed: Yes Acetaminophen/Diphenhydramine (Percogesic 325-12.5 mg Tablet) 1 Each Tablet, 2 EACH PO Q6H PRN for PAIN-MODERATE (5-7) Prescribed by: ANSON GALLARDO on 02/05/20 1455 Amoxicillin (Amoxicillin) 500 Mg Capsule, 500 MG PO TID Prescribed by: ANSON GALLARDO on 07/11/19 1631 Fluticasone Propionate (Flonase Allergy Relief) 9.9 Ml [place].susp, 2 SPRAY NS DAILY Prescribed by: YAJAIRA BARROSO on 04/06/19 1325 Ondansetron (Ondansetron Odt) 8 Mg Tab.rapdis, 8 MG PO Q6H Prescribed by: ANSON GALLARDO on 04/19/19 1145 Ondansetron (Ondansetron Odt) 8 Mg Tab.rapdis, 8 MG PO Q6H PRN for NAUSEA/VOM ITING Prescribed by: ANSON GALLARDO on 09/03/21 1403 Pantoprazole Sodium (Pantoprazole Sodium) 40 Mg Tablet.dr, 40 MG PO DAILY Prescribed by: YAJAIRA BARROSO on 04/06/19 1325 Penicillin V Potassium (Penicillin V Potassium) 500 Mg Tablet, 500 MG PO Q6H Prescribed by: ANSON GALLARDO on 02/05/20 1455 Prednisone (Prednisone) 20 Mg Tab, 40 MG PO BID Prescribed by: YAJAIRA BARROSO on 04/06/19 1325 Prednisone (Prednisone) 50 Mg Tab, 50 MG PO DAILY Prescribed by: CHIDI DELAROSA on 08/25/22 0851 Sucralfate (Carafate) 1 Gm Tablet, 1 GM PO QIDACHS Prescribed by: YAJAIRA BARROSO on 04/06/19 1325 Sulfamethoxazole/Trimethoprim (Bactrim Ds Tablet) 1 Each Tablet, 1 EACH PO BID Prescribed by: JEREMY PIEDRA on 05/17/20 1321 Review of Systems Review of Systems Constitutional: see HPI; No chills, No fever Nose: no symptoms reported Mouth: see HPI, pain Throat: no symptoms reported Respiratory: No cough, No short of breath Skin: No change in color, No lesions Past Blxowhg-Eykeve-Utyaee Hx Patient Social History Tobacco Use?: Yes Tobacco type used: Cigarettes Immunizations Up To Date Influenza Vaccine Up-to-Date: No; Not Current Past Medical History Surgeries: Yes Tubal Ligation Respiratory: No Cardiac: No Neurological: No Genitourinary: No Gastrointestinal: No Musculoskeletal: No Endocrine: No HEENT: No Cancer: No Psychosocial: No Integumentary: No Blood Disorders: No Family Medical History Reviewed Nursing Family Hx Physical Exam Vital Signs Vital Signs - First Documented 11/29/22 21:21 Temp 36.2 Pulse 50 Resp 20 B/P (MAP) 138/91 (107) Pulse Ox 18 O2 Delivery Room Air Height, Weight, BMI Height: 5'11.00" Weight: 210lbs. oz. 95.320001zl; 28.00 BMI Method:Stated General Appearance: WD/WN, no apparent distress Nose: normal inspection Mouth/Throat: pharynx normal; No trismus; other (Poor dentition overall. Does have some dental caries to the posterior teeth upper and lower on the left with loss of teeth anterior to both of these molar teeth. No obvious intraoral abs cess.) Progress/Results/Core Measures Results/Orders My Orders Orders - ROSA MCCAULEY MD Lidocaine 2% Jelly 5 Ml (Xylocaine Jelly (11/29/22 21:45) Hydrocodone/Apap 5/325 Tablet (Lortab 5 (11/29/22 21:45) Clindamycin Capsule (Cleocin Capsule) (11/29/22 21:38) Vital Signs/I&O 11/29/22 21:21 Temp 36.2 Pulse 50 Resp 20 B/P (MAP) 138/91 (107) Pulse Ox 18 O2 Delivery Room Air Blood Pressure Mean: 107 Progress Progress Note : Progress Note Seen and evaluated. Hydrocodone 5/325 1 tab p.o. Clindamycin 300 mg p.o. We will initiate topical lidocaine jelly. Discharged home with return precautions, OTC instructions, follow-up instructions and return precautions. Patient verbalized understanding of instructions and agreement with plan. Departure Impression Primary Impression: Dental caries Disposition: 01 HOME, SELF-CARE Condition: Stable Departure-Patient Inst. Decision time for Depature: 21:45 Referrals: [facility] ([place]) Primary Care Physician Patient Instructions: Dental Pain (DC), Tooth Decay, Adult (DC) Add. Discharge Instructions: All discharge instructions reviewed with patient and/or family. Voiced understanding. Take medications as prescribed. If you are not taking the prescribed pain medicine, you may take Tylenol/acetaminophen 1000 mg every 6-8 hours as needed for pain. You may take ibuprofen 600 mg every 8 hours as needed for pain. Use topical lidocaine to area of concern several times a day as needed. You may rinse mouth with salt water 2-3 times a day. You may mix salt water by using 1 teaspoon of salt and warm water and swishing that like a mouthwash and then spitting. Do not swallow salt water. Continue to brush your teeth. It is very important that you follow-up with a dentist JALEEL. Return for worse pain, swelling, difficulty breathing or swallowing or other concerns as needed. Scripts Hydrocodone/Acetaminophen (Hydrocodone-Acetamin 5-325 mg) 5 Mg-325 Mg Tablet 1 TAB PO Q6H PRN for PAIN-MODERATE (5-7) for 7 Days, #8 TAB 0 Refills Prov: ROSA MCCUALEY MD 11/29/22 Clindamycin HCl (Clindamycin HCl) 300 Mg Capsule 300 MG PO QID for 7 Days, #28 CAP Prov: ROSA MCCAULEY MD 11/29/22 ROSA MCCAULEY MD Nov 29, 2022 21:47
[2022-11-29] MEDS ORDERED: CLIN-144 PO (21:48)
[2022-11-29] MEDS ORDERED: ACHD5005 PO (21:48)
[2022-11-29] MEDS ORDERED: LIDOCAINE 2% VISCOUS 15 ML UDC ONE (21:54)
[2022-11-29] MEDS ORDERED: HURRICAINE EXT TUBE (BENZOCAINE) ONE (21:54)
[2022-11-29] MEDS: LIDOCAINE JELLY 2% (XYLOCAINE) 5 ML TUBE TOP ONE (22:03)
[2022-11-29 22:04] VITALS: BP 90/49
== END 2022-11-29 22:05 | disposition home or self-care (01) ==
LOC: EDUNIT# 21:05 → ER 21:07
DX: K02.9 Dental caries, unspecified (principal); F17.210 Nicotine dependence, cigarettes, uncomplicated; Z28.310 Unvaccinated for COVID-19
CPT/HCPCS: 99283